=== PATIENT | female | born 1940 | race Caucasian/White ===

== ENCOUNTER 2017-07-03 14:10 | Emergency (ER) | payer OTHER ==
[~2017-07-03] VITALS: Ht 165.1 cm; Wt 83.0 kg
[2017-07-03 14:49] VITALS: Ht 165.1 cm; Wt 83.0 kg
[2017-07-03] MEDS ORDERED: KETOROLAC 15 MG INJ IM STA (16:56)
--- NOTE | 2017-07-03 18:15 | ERD ---
ER Documentation Chief Complaint Date/Time DATE: 07/03/17 TIME: 18:08 Chief Complaint redness/pain and swelling to right buttocks x 2 weeks HPI Rom is 77-year-old female presents to emergency department today with her granddaughter for translation. Patient reports right gluteal abscess, or itchy painful papules that are bleeding. Symptoms have been present for 5 days. Patient denies history of a repeated rash in this area. Denies nausea, vomiting , fever, chills. ROS All systems reviewed and are negative except as per history of present illness. Medications Home Meds Active Scripts Valacyclovir HCl (Valtrex) 1,000 Mg Tablet, 1000 MG PO TID for 7 Days, TAB Prov:ARETHA,JANINE 07/03/17 Cephalexin* (Keflex*) 500 Mg Capsule, 500 MG PO QID for 10 Days, CAP Prov:ARETHA,JANINE 07/03/17 Physical Exam Vitals Vital Signs Date Time Temp Pulse Resp B/P Pulse Ox O2 Delivery O2 Flow Rate FiO2 07/03/17 14:49 98.5 66 18 113/63 97 Vitals stable, triage notes reviewed Physical Exam Const: Well-nourished well-hydrated well-appearing female in no acute distress Head: Atraumatic Eyes: Normal Conjunctiva, PERRLA, EOMI ENT: Normal External Ears, Nose and Mouth. Neck: Full range of motion..~ No meningismus. Resp: Clear to auscultation bilaterally Cardio: Abd: Skin: Right buttocks presents with fluid-filled vesicles secondary scab without erythema, or pustule. Site is soft, no palpable mass or suspicion for abscess requiring incision and drainage. Back: Ext: Neur: Awake and alert Psych: Normal Mood and Affect Results 24 hrs Current Medications Medications (Trade) Dose Ordered Sig/Ximena Route PRN Reason Start Time Stop Time Status Last Admin Dose Admin Ketorolac Tromethamine (Toradol) 15 mg ONCE STAT IM 07/03/17 16:56 07/03/17 16:58 DC Procedures/MDM This 77-year-old female presents to emergency department with a blister type rash secondary scabs bleeding with pruritus. Site is both pruritic and painful. Differential diagnosis includes but not limited to herpes zoster, herpes simplex, staph infection. She has a small child with an open wound at home status post surgical procedure family is very concerned about infection. Plan to treat today with Toradol for pain, discharged home with both Keflex 500 mg 4 times daily 10 days, Valtrex 1000 mg 1 tab p.o. 3 times daily and Naprosyn 500 mg 1 tab p.o. twice daily 10 days take with food. Family instructed to be alerted for rash reappearance in same area. Follow-up with primary care physician if symptoms fail to improve as anticipated. Patient is stable with no new complaints during ER course, clinically there is no current evidence to suggest Necrotizing fasciitis, chickenpox, Avendaño-Serge syndrome , cellulitis or any other emergent condition appearing to require further evaluation or hospitalization. I feel the patient is stable for discharge at this time. I have discussed results, examination findings, the treatment plan with the patient and family present prior to discharge. Indications for emergent reevaluation, side effects of medication were also discussed. All questions were answered. Patient verbalizes understanding and agrees with plan of care. Departure Diagnosis: Primary Impression: Viral infection Additional Impression: Bacterial skin infection Condition: Good Patient Instructions: Methicillin-Resistant Staphylococcus aureus (MRSA) Infection, Shingles (Herpes Zoster) Referrals: [facility] Additional Instructions: Thank you for for coming to [facility] for your care today. Please ask your nurse or provider if you have questions about your care today and do not leave until all your questions have been answered. Please use any medications given as directed and follow-up with your doctor (or the doctor you were referred to) in the next 2-3 days. If you do not have a primary care doctor you may [place] [facility] [place] ([place] You may also use motrin and tylenol as needed for fever and/or pain unless instructed otherwise by your provider or nurse. Indications for more urgent follow-up have been discussed, but you may return to the Emergency Department at ANY time for any worrisome or worsening symptoms. If you have abdominal pain, please know that no test or exam you received is perfect and you should follow up within 8 hours for continued pain. If you had any imaging studies today, such as an X-Ray or CT Scan, these studies will be reviewed later by a radiologist. You will be called if there are important findings that were not identified today, so make sure the contact information you provided at registration is correct. If you received any narcotic pain control medicine today, such as Vicodin, Morphine or Dilaudid, your coordination and judgment may be affected for a number of hours. Please do not drive or operate heavy machinery, and you may want someone to assist you at home. If you were given a prescription for narcotic medication, be aware that it is very addictive- use sparingly and only if necessary. JANINE CARIAS Jul 03, 2017 18:14
[2017-07-03] MEDS ORDERED: CEPH-443 PO (18:16)
[2017-07-03] MEDS ORDERED: VALA10004 PO (18:16)
[2017-07-03] MEDS ORDERED: NAPR-260 PO (18:20)
== END 2017-07-03 19:14 | disposition home or self-care (01) ==
LOC: FTE 14:10
DX: B34.9 Viral infection, unspecified (principal); A49.9 Bacterial infection, unspecified
CPT/HCPCS: 96372; J1885; Z7502